=== PATIENT | female | born 1970 | race Caucasian/White ===

== ENCOUNTER 2020-10-26 10:51 | Inpatient (IN) | payer OTHER ==
[~2020-10-26] VITALS: Ht 172.7 cm; Wt 68.0 kg
== END 2020-10-30 14:05 | disposition home or self-care (01) | DRG 603 ==
LOC: ER 10:51 → SURH 13:56
PROVIDERS: ADMIT Specialist; ATTEND Specialist
PROC: 8E0ZXY6 Isolation (ICD-10-PCS; principal; 2020-10-26)
DX: L02.31 Cutaneous abscess of buttock (principal); B95.62 Methicillin resistant Staphylococcus aureus infection as the cause of diseases classified elsewhere; Z20.822 Contact with and (suspected) exposure to COVID-19